=== PATIENT | female | born 1970 | race Caucasian/White ===

== ENCOUNTER 2017-12-08 16:55 | Observation (INO) | payer BC, SELFPAY ==
[2017-12-08] VITALS (10 sets, daily range): BP systolic 145–174; BP diastolic 76–104; PULSE 76–105; RESP 16–21; TEMP 36.7; O2SAT 97–100; BMI 37.2; BMI 36.7
--- NOTE | 2017-12-08 17:17 | RAD_ITS ---
STUDY: X-RAY CHEST REASON FOR EXAM: Female, 47 years old. Chest pain TECHNIQUE: AP port COMPARISON: None. FINDINGS: There is mild elevation right hemidiaphragm.. There is no demonstrated pleural abnormality. Borderline cardiomegaly exaggerated by technical factors.. Normal mediastinum and sonia. Normal visualized pulmonary arteries. Normal visualized aortic arch and descending thoracic aorta. Normal visualized thoracic spine. Normal visualized ribs, clavicles, and shoulders. There is no demonstrated abnormality of the visualized soft tissue structures of the upper abdomen. RAD/Chest 1 View (Portable) IMPRESSION: No acute cardiopulmonary pathology Electronically Signed: Praful Cardenas MD at 18:06 EDT , Service support ,
--- NOTE | 2017-12-08 17:17 | EKG12_ITS ---
Test Reason : Blood Pressure : / mmHG Vent. Rate : 092 BPM Atrial Rate : 092 BPM P-R Int : 134 ms QRS Dur : 074 ms QT Int : 358 ms P-R-T Axes : 044 012 042 degrees QTc Int : 442 ms Normal sinus rhythm Nonspecific ST abnormality Abnormal ECG No previous ECGs available Confirmed by SUSIE BEACH, DOMINIQUE ([id number]), general expeditor JULIETA DAVIS ([id number]) on 12/19/2017 9:30:37 AM Referred By: DULCE MARIA
--- NOTE | 2017-12-08 17:22 | NURSING ---
NO OLD EKG
[2017-12-08 17:37] LABS: Absolute Lymphocyte Count 2.86 X10^3/ul (0.83-4.51); Absolute Neutrophil Count 5.8 X10^3/uL (2.0-7.7); Basophil# 0.05 X10^3/uL; Basophil% 0.5 % (0-1); Eosinophil# 0.09 X10^3/uL; Eosinophils% 0.9 % (0-5); Hematocrit 41.5 % (37-47); Hemoglobin 13.9 g/dl (12.0-15.0); Lymphocyte # 2.86 X10^3/ul (4.0); Lymphocyte % 29.7 % (19-41); Mean Corp Hgb Conc 33.5 g/gl (32-36); Mean Corpuscular Hgb 29.6 pg (27.0-32.0); Mean Corpuscular Volume 88.5 fL (81-99); Mean Platelet Vol. 9.2 fl (6.2-12.0); Monocyte# 0.72 X10^3/uL; Monocyte% 7.5 % (0-10); Neutrophil % 60.2 % (47-70); Platelet Count 289 K/mm3 (150-450); RBC Distribution Width CV 13.8 % (11.6-14.6); Red Blood Count 4.69 M/mm3 (4.2-5.4); White Blood Count 9.6 K/mm3 (4.4-11.0)
[2017-12-08] MEDS: Aspirin 81 MG TAB.CHEW 324 MG PO (17:37)
[2017-12-08 17:50] LABS: POSITIVE COUNT NO; POSITIVE DIFFERENTIAL NO; POSITIVE MORPHOLOGY NO
--- NOTE | 2017-12-08 17:53 | ED.DCSUM_ITS ---
- ER Visit Summary Date of Service: 12/08/17 Chief Complaint: Chest pain History of Present Illness: The patient is a 47 F presenting with intermittent chest pain ?2 weeks. Patient states that this is worsened with exertion. She also complains of shortness of breath with exertion. She states she has had intermittent episodes. She states today the pain lasted longer than previous. She has a history of a previous DVT after knee surgery, no other PE/DVT risk factors. She has a family history of early heart disease. Her blood pressure has been running high but she is not on blood pressure medications. Physical Examination: Vitals are stable. Patient is afebrile. Alert no acute distress. HEENT exam is unremarkable. Neck is supple. Lungs are clear and equal bilaterally. Heart is regular rate and rhythm. Abdomen is soft nontender nondistended. Extremities are unremarkable. Skin is warm and dry. No focal neurologic deficit. Remainder of exam is unremarkable. Emergency Department Course and Treatment: EKG is sinus rate of 92 with no acute ischemic changes. Chest x-ray shows no acute process. CBC, chemistries unremarkable. Troponin is negative. D-dimer 0.34. She was given aspirin on arrival. She remains chest pain-free in the emergency department. Discussed with Dr. Del Toro for admission. Disposition: Admission Impression: Chest pain This note was generated with [employer] dictation software. It may contain incorrect words, spelling, and punctuation that were not noted in review of the chart prior to signing ED Disposition - Plan for ED Patient: Chief Complaint: Chest Pain
[2017-12-08 18:02] LABS: Anion Gap 7 (5-15); BUN 16 mg/dL (7-18); BUN/Creat Ratio 21.7 RATIO (10-20); Calcium,Total 8.4 mg/dL (8.5-10.1); Chloride 105 mmol/L (98-107); Creatinine, Serum 0.74 mg/dL (0.55-1.02); EST Glomerular Filtration Rate 89 mL/min (>60); Est Glom Filt Rate - Afr Amer 107 mL/min (>60); Estimated Creatinine Clearance 92.77 ml/min; Glucose 100 mg/dL (74-106); Potassium 3.7 mmol/L (3.5-5.1); Sodium Level 140 mmol/L (136-145)
--- NOTE | 2017-12-08 18:14 | PCM.HP.STD ---
Problem List (1) Obesity (BMI 30-39.9) Status: Chronic (2) RSD (reflex sympathetic dystrophy) Status: Chronic (3) GERD (gastroesophageal reflux disease) Status: Chronic Qualifiers: Esophagitis presence: esophagitis presence not specified Qualified Code(s): K21.9 - Gastro-esophageal reflux disease without esophagitis (4) Elevated BP without diagnosis of hypertension Status: Acute (5) Chest pain Status: Acute Qualifiers: Chest pain type: unspecified Qualified Code(s): R07.9 - Chest pain, unspecified History of Present Illness Date of Admission: 12/08/17 Chief Complaint: Chest pain The patient is a 47 y/o F w/ PMHx: Obesity, RSD s/p recent L ankle nerve block, GERD, History of remote DVT following knee surgery who presents to the [facility] ED on 12/08/17 with intermittent, substernal central, non-radiating chest pain/tightness with associated dyspnea and lightheadedness, onset with primarily exertion x 2 weeks with recurrent episode on day of ED presentation, noted to be worse than prior in severity and also with 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 In the ED work-up included T 98.1, HR 99, BP 174/100-->145/91, RR 20, 98% on RA, unremarkable CBC, pending D-dimer upon evaluation, unremarkable BMP aside Ca 8.4, trop < 0.02, EKG without acute evidence of ischemia, sinus rhythm, CXR without acute findings. In the ED patient administered ASA. Past Medical History Past Medical History (Chronic Problems): Chronic Problems Obesity (BMI 30-39.9) (Chronic) RSD (reflex sympathetic dystrophy) (Chronic) GERD (gastroesophageal reflux disease) (Chronic) Allergies bee venom protein (honey bee) Allergy (Verified 12/08/17 16:57) Unknown Iodinated Contrast- Oral and IV Dye Allergy (Verified 12/08/17 16:57) Unknown hayfever Allergy (Uncoded 12/08/17 16:57) Unknown Home Medications: Ambulatory Orders Medication Instructions Recorded Epinephrine [Epi Pen] 0.3 mg IM X1 12/08/17 Ranitidine [Zantac] 150 mg PO DAILY 12/08/17 Surgical History: - - Bilateral arthroscopic knee surgery, hysterectomy, cholecystectomy with bile duct repair follow-up, appendectomy. Psychiatric History: No pertinent psych hx RADIO STATION ENGINEER History: No pertinent RADIO STATION ENGINEER history Lives: With Family Smoking Status: Never smoker Alcohol: None Drugs: None - *Family History Maternal History Items: - - Mother with a history of heart disease, heart attack at age 48 with PCI and CABG history. Paternal History Items: - - Father with a history of heart disease with [place] in his 50s. Review of Systems Constitutional: Reports: Fatigue. Denies: Chills, Fever, Weight Change HEENT: Denies: Head Aches, Sinus Congestion, Sinus Drainage Cardiovascular: Reports: Chest Pain, Chest Tightness, Light Headedness. Denies: Edema, Heaviness, Orthopnea, Palpitations, Paroxysmal Noc. Dyspnea, Syncope Respiratory: Reports: Shortness of Breath, Shortness of breath upon exertion. Denies: Cough, Shortness of breath at rest, Sputum production Gastrointestinal: Denies: Abdominal Pain, Nausea, Vomiting Genitourinary: Denies: Dysuria Musculoskeletal: Denies: Joint Pain, Joint Tenderness Skin: Denies: Rash, Wounds Neurological: Denies: Numbness, Tingling, Focal weakness Psychiatric: Denies: Anxiety, Depression, Homicidal Ideations, Suicidal Ideations Hematologic/ Lymphatic: Denies: Easy Bruising, Easy Bleeding VTE Information - Inpt Only VTE Present on Admission: No VTE Mechan Device Prophylaxis: SCD's VTE Pharm Prophylaxis ordered?: Yes Patient Problems: Active and Suspected Problems Elevated BP without diagnosis of hypertension (Acute) Chest pain (Acute) Subjective: Seated upright in the ED bed, NAD, notes no current discomfort. Objective: Physical Examination: General: awake, alert, oriented x 3 and cooperative, seated upright in the ED bed in no apparent distress. Skin: normal color, turgor, no icterus, cyanosis. HEENT: AT/NC, EOMI, PERRLA, MMM, no carotid bruits or JVD noted. Lungs: CTA bilaterally, moderate effort, mild decrease BL bases, no rales, ronchi or wheezing. Heart: Regular rate and rhythm; no gallop, rub audible, no reproducible discomfort with chest palpation. Abdomen: soft, obese, NTTP, ND, normal BS, no HSM. Extremities: no cyanosis, clubbing, or edema. Neurological: patient awake, alert, oriented x 3; cognitive function intact; pupils equally reactive to light and accomodation; cranial nerves II-XII grossly normal, moving all 4 extremities, no focal deficits, strength preserved. Psychiatric: affect appears normal, no acute evidence of depressive or anxiety feelings. - Physical Exam Vital Signs Temp Pulse Resp BP Pulse Ox 98.1 F 86 21 H 145/91 H 97 12/08/17 16:57 12/08/17 17:56 12/08/17 17:56 12/08/17 17:56 12/08/17 17:56 Oxygen Delivery Method Nasal Cannula Weight: 244 lb 11.41 oz Body Mass Index (BMI) 37.2 Laboratory Tests Past 24 Hrs 12/08/17 12/08/17 12/08/17 17:25 17:25 17:25 WBC 9.6 RBC 4.69 Hgb 13.9 Hct 41.5 MCV 88.5 MCH 29.6 MCHC 33.5 RDW 13.8 RDW Differential 44.0 H Plt Count 289 MPV 9.2 Immature Gran % (Auto) 1.200 H Neut % (Auto) 60.2 Lymph % (Auto) 29.7 Mclennan % (Auto) 7.5 Eos % (Auto) 0.9 Baso % (Auto) 0.5 Absolute Neuts (auto) 5.8 Absolute Lymphs (auto) 2.86 Total Counted Not Reportable D-Dimer Quant (PE/DVT) Pending Sodium 140 Potassium 3.7 Chloride 105 Carbon Dioxide 28.0 Anion Gap 7 BUN 16 Creatinine 0.74 Estim Creat Clear Calc 92.77 Est GFR (MDRD) Af Amer 107 Est GFR (MDRD) Non-Af 89 BUN/Creatinine Ratio 21.7 H Glucose 100 Calcium 8.4 L Troponin I < 0.02 Assessment/Plan Active and Suspected Problems Elevated BP without diagnosis of hypertension (Acute) Chest pain (Acute) The patient is a 47 y/o F w/ PMHx: Obesity, RSD s/p recent L ankle nerve block, GERD, History of remote DVT following knee surgery who presents to the [facility] ED on 12/08/17 with intermittent, substernal central, non-radiating chest pain/tightness with associated dyspnea and lightheadedness x 2 weeks, worse on day of ED presentation. (1) Chest Pain: In the ED work-up included T 98.1, HR 99, BP 174/100-->145/91, RR 20, 98% on RA, unremarkable CBC, pending D-dimer upon evaluation, unremarkable BMP aside Ca 8.4, trop < 0.02, EKG without acute evidence of ischemia, sinus rhythm, CXR without acute findings. In the ED patient administered ASA. Will admit to PCU, place on a monitored bed to assure no acute myocardial infarction with serial cardiac enzymes and EKGs. Patient is unable to perform exercise thus will proceed with AM nuclear stress testing. ASA, NG, morphine. FLP in AM. Mag pending. (2) Elevated BP without Dx Hypertension: Notable elevation BP in the ED, improved without treatment, continue to monitor, if remains above goal over the next 24 hours initiate oral therapy, PRN hydralazine. (3) Obesity: Weight loss and lifestyle changes encouraged, nutrition consulted for diet education and teaching. (4) RSD: s/p L ankle injection, maintain on home gabapentin regimen. (5) DVT Prophylaxis: SCDs, lovenox. Code Visit OBSV E&M: 04533 Initial observation care L3
--- NOTE | 2017-12-08 18:16 | NURSING ---
PCU OBS CP WHITE
--- NOTE | 2017-12-08 18:20 | HP.PCM_ITS ---
Problem List (1) Obesity (BMI 30-39.9) Status: Chronic (2) RSD (reflex sympathetic dystrophy) Status: Chronic (3) GERD (gastroesophageal reflux disease) Status: Chronic Qualifiers: Esophagitis presence: esophagitis presence not specified Qualified Code(s) : K21.9 - Gastro-esophageal reflux disease without esophagitis (4) Elevated BP without diagnosis of hypertension Status: Acute (5) Chest pain Status: Acute Qualifiers: Chest pain type: unspecified Qualified Code(s): R07.9 - Chest pain, unspecified History of Present Illness Date of Admission: 12/08/17 Chief Complaint: Chest pain The patient is a 47 y/o F w/ PMHx: Obesity, RSD s/p recent L ankle nerve block, GERD, History of remote DVT following knee surgery who presents to the [facility] ED on 12/08/17 with intermittent, substernal central, non-radiating chest pain/ tightness with associated dyspnea and lightheadedness, onset with primarily exertion x 2 weeks with recurrent episode on day of ED presentation, noted to be worse than prior in severity and also with 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 In the ED work-up included T 98.1, HR 99, BP 174/100-->145/91, RR 20, 98% on RA, unremarkable CBC, pending D-dimer upon evaluation, unremarkable BMP aside Ca 8.4 , trop < 0.02, EKG without acute evidence of ischemia, sinus rhythm, CXR without acute findings. In the ED patient administered ASA. Past Medical History Past Medical History (Chronic Problems): Chronic Problems Obesity (BMI 30-39.9) (Chronic) RSD (reflex sympathetic dystrophy) (Chronic) GERD (gastroesophageal reflux disease) (Chronic) Allergies bee venom protein (honey bee) Allergy (Verified 12/08/17 16:57) Unknown Iodinated Contrast- Oral and IV Dye Allergy (Verified 12/08/17 16:57) Unknown hayfever Allergy (Uncoded 12/08/17 16:57) Unknown Home Medications: Ambulatory Orders Medication Instructions Recorded Epinephrine [Epi Pen] 0.3 mg IM X1 12/08/17 Ranitidine [Zantac] 150 mg PO DAILY 12/08/17 Surgical History: - - Bilateral arthroscopic knee surgery, hysterectomy, cholecystectomy with bile duct repair follow-up, appendectomy. Psychiatric History: No pertinent psych hx CAREER ADVISOR History: No pertinent CAREER ADVISOR history Lives: With Family Smoking Status: Never smoker Alcohol: None Drugs: None - *Family History Maternal History Items: - - Mother with a history of heart disease, heart attack at age 48 with PCI and CABG history. Paternal History Items: - - Father with a history of heart disease with [place] in his 50s. Review of Systems Constitutional: Reports: Fatigue. Denies: Chills, Fever, Weight Change HEENT: Denies: Head Aches, Sinus Congestion, Sinus Drainage Cardiovascular: Reports: Chest Pain, Chest Tightness, Light Headedness. Denies : Edema, Heaviness, Orthopnea, Palpitations, Paroxysmal Noc. Dyspnea, Syncope Respiratory: Reports: Shortness of Breath, Shortness of breath upon exertion. Denies: Cough, Shortness of breath at rest, Sputum production Gastrointestinal: Denies: Abdominal Pain, Nausea, Vomiting Genitourinary: Denies: Dysuria Musculoskeletal: Denies: Joint Pain, Joint Tenderness Skin: Denies: Rash, Wounds Neurological: Denies: Numbness, Tingling, Focal weakness Psychiatric: Denies: Anxiety, Depression, Homicidal Ideations, Suicidal Ideations Hematologic/ Lymphatic: Denies: Easy Bruising, Easy Bleeding VTE Information - Inpt Only VTE Present on Admission: No VTE Mechan Device Prophylaxis: SCD's VTE Pharm Prophylaxis ordered?: Yes Patient Problems: Active and Suspected Problems Elevated BP without diagnosis of hypertension (Acute) Chest pain (Acute) Subjective: Seated upright in the ED bed, NAD, notes no current discomfort. Objective: Physical Examination: General: awake, alert, oriented x 3 and cooperative, seated upright in the ED bed in no apparent distress. Skin: normal color, turgor, no icterus, cyanosis. HEENT: AT/NC, EOMI, PERRLA, MMM, no carotid bruits or JVD noted. Lungs: CTA bilaterally, moderate effort, mild decrease BL bases, no rales, ronchi or wheezing. Heart: Regular rate and rhythm; no gallop, rub audible, no reproducible discomfort with chest palpation. Abdomen: soft, obese, NTTP, ND, normal BS, no HSM. Extremities: no cyanosis, clubbing, or edema. Neurological: patient awake, alert, oriented x 3; cognitive function intact; pupils equally reactive to light and accomodation; cranial nerves II-XII grossly normal, moving all 4 extremities, no focal deficits, strength preserved. Psychiatric: affect appears normal, no acute evidence of depressive or anxiety feelings. - Physical Exam Vital Signs Temp Pulse Resp BP Pulse Ox 98.1 F 86 21 H 145/91 H 97 12/08/17 16:57 12/08/17 17:56 12/08/17 17:56 12/08/17 17:56 12/08/17 17:56 Oxygen Delivery Method Nasal Cannula Weight: 244 lb 11.41 oz Body Mass Index (BMI) 37.2 Laboratory Tests Past 24 Hrs 12/08/17 12/08/17 12/08/17 17:25 17:25 17:25 WBC 9.6 RBC 4.69 Hgb 13.9 Hct 41.5 MCV 88.5 MCH 29.6 MCHC 33.5 RDW 13.8 RDW Differential 44.0 H Plt Count 289 MPV 9.2 Immature Gran % (Auto) 1.200 H Neut % (Auto) 60.2 Lymph % (Auto) 29.7 Crowley % (Auto) 7.5 Eos % (Auto) 0.9 Baso % (Auto) 0.5 Absolute Neuts (auto) 5.8 Absolute Lymphs (auto) 2.86 Total Counted Not Reportable D-Dimer Quant (PE/DVT) Pending Sodium 140 Potassium 3.7 Chloride 105 Carbon Dioxide 28.0 Anion Gap 7 BUN 16 Creatinine 0.74 Estim Creat Clear Calc 92.77 Est GFR (MDRD) Af Amer 107 Est GFR (MDRD) Non-Af 89 BUN/Creatinine Ratio 21.7 H Glucose 100 Calcium 8.4 L Troponin I < 0.02 Assessment/Plan Active and Suspected Problems Elevated BP without diagnosis of hypertension (Acute) Chest pain (Acute) The patient is a 47 y/o F w/ PMHx: Obesity, RSD s/p recent L ankle nerve block, GERD, History of remote DVT following knee surgery who presents to the [facility] ED on 12/08/17 with intermittent, substernal central, non-radiating chest pain/ tightness with associated dyspnea and lightheadedness x 2 weeks, worse on day of ED presentation. (1) Chest Pain: In the ED work-up included T 98.1, HR 99, BP 174/100-->145/91, RR 20, 98% on RA, unremarkable CBC, pending D-dimer upon evaluation, unremarkable BMP aside Ca 8.4, trop < 0.02, EKG without acute evidence of ischemia, sinus rhythm, CXR without acute findings. In the ED patient administered ASA. Will admit to PCU, place on a monitored bed to assure no acute myocardial infarction with serial cardiac enzymes and EKGs. Patient is unable to perform exercise thus will proceed with AM nuclear stress testing. ASA , NG, morphine. FLP in AM. Mag pending. (2) Elevated BP without Dx Hypertension: Notable elevation BP in the ED, improved without treatment, continue to monitor, if remains above goal over the next 24 hours initiate oral therapy, PRN hydralazine. (3) Obesity: Weight loss and lifestyle changes encouraged, nutrition consulted for diet education and teaching. (4) RSD: s/p L ankle injection, maintain on home gabapentin regimen. (5) DVT Prophylaxis: SCDs, lovenox. Code Visit OBSV E&M: 42179 Initial observation care L3
[2017-12-08 18:42] LABS: D-Dimer Quantitative (DVT/PE) 0.34 FEU/ug/m (0.27-0.49)
[2017-12-08] MEDS: Famotidine 20 MG Tablet PO (21:26)
[2017-12-08] MEDS: 0.9% NaCl Peripheral Flush Adult/Peds IV (21:27)
[2017-12-08] MEDS: hydrALAZINE 20 MG/ML Vial 10 MG IV (21:27)
[2017-12-08] MEDS: 0.9% Normal Saline 1,000 ML 125 ML IV (23:51)
[2017-12-09] VITALS (7 sets, daily range): BP systolic 137–145; BP diastolic 76–90; PULSE 68–78; RESP 16–18; TEMP 36.5–36.8; O2SAT 97–98
[2017-12-09] MEDS: Aspirin E.C. 81 MG Tablet PO (05:14)
--- NOTE | 2017-12-09 05:55 | EKG12_ITS ---
Test Reason : AM EKG Blood Pressure : / mmHG Vent. Rate : 071 BPM Atrial Rate : 071 BPM P-R Int : 140 ms QRS Dur : 076 ms QT Int : 418 ms P-R-T Axes : 017 011 038 degrees QTc Int : 454 ms Normal sinus rhythm Normal ECG When compared with ECG of 08-DEC-2017 16:56, MANUAL COMPARISON REQUIRED, DATA IS UNCONFIRMED Confirmed by SUSIE BEACH, DOMINIQUE ([id number]), editorial project manager JULIETA DAVIS ([id number]) on 12/12/2017 1:38:29 PM Referred By: NEDRA Confirmed By:DOMINIQUE RICHARDS MD
[2017-12-09] MEDS: Famotidine 20 MG Tablet PO (10:28)
[2017-12-09 10:48] LABS: Hematocrit 41.7 % (37-47); Hemoglobin 13.3 g/dl (12.0-15.0); Mean Corp Hgb Conc 31.9 g/gl (32-36); Mean Corpuscular Hgb 28.5 pg (27.0-32.0); Mean Corpuscular Volume 89.3 fL (81-99); Platelet Count 257 K/mm3 (150-450); RBC Distribution Width SD 45.3 fl (35.1-43.9); Red Blood Count 4.67 M/mm3 (4.2-5.4); White Blood Count 7.4 K/mm3 (4.4-11.0)
[2017-12-09 10:50] LABS: Scan Indicated on CBC? Y/N NO
[2017-12-09 10:57] LABS: Prothrombin Time (Protime)PT. 12.8 SECONDS (11.7-14.9)
[2017-12-09 10:58] LABS: Partial Thromboplast Time 30.4 Seconds (24.1-36.2)
--- NOTE | 2017-12-09 11:01 | STRESSREP ---
Stress Test Report Pharmacologic myocardial perfusion stress test. 47-year-old lady with a history of chest pain. Stress protocol: Resting EKG demonstrates sinus rhythm with a rate of 65 bpm normal intervals and noted resting blood pressure is 138/92 mmHg. 0.4 mg of regadenoson was infused per usual protocol followed by rapid intravenous saline flush injection continuous EKG monitoring was performed. The maximum heart rate attained was 90 bpm which was from the percent of maximum predicted heart rate. Resting blood pressure is 138/92 final blood pressure was the same. Myocardial perfusion protocol. 13.4 mCi of technetium 99m sestamibi was injected at rest. 0.4 mg of regadenoson was infused per usual protocol. At peak infusion 42.0 mCi of technetium 99m sestamibi was injected stress images were obtained stress and rest images were reconstructed and compared in the short axis vertical long and horizontal long axis. Gated images were also obtained. Perfusion SPECT analysis: Review of the stress images demonstrate normal uptake of tracer noted in all areas of the myocardium. The resting images similarly demonstrate normal uptake of tracer noted in all areas of the myocardium. No areas of reversibility are noted suggest ischemia no previous infarct is noted. Gated SPECT analysis: The gated ejection fraction is 66%. Conclusion: Normal pharmacologic myocardial perfusion stress test. Preserved ejection fraction.
[2017-12-09 11:09] LABS: Anion Gap 8 (5-15); BUN 11 mg/dL (7-18); BUN/Creat Ratio 16.1 RATIO (10-20); Calcium,Total 8.1 mg/dL (8.5-10.1); Chloride 108 mmol/L (98-107); Cholesterol 193 mg/dL (200); Creatinine, Serum 0.68 mg/dL (0.55-1.02); EST Glomerular Filtration Rate 97 mL/min (>60); Est Glom Filt Rate - Afr Amer 117 mL/min (>60); Estimated Creatinine Clearance 100.95 ml/min; Glucose 92 mg/dL (74-106); High Density Lipoprotein 52 mg/dL; Potassium 3.9 mmol/L (3.5-5.1); Sodium Level 139 mmol/L (136-145); Triglycerides 128 mg/dL; Very Low Density Lipoprotein 26 mg/dL (5-40)
--- NOTE | 2017-12-09 11:13 | PCM.DC ---
- Discharge Diagnoses Current Active Problems: Current Active and Chronic Problems Obesity (BMI 30-39.9) (Chronic) RSD (reflex sympathetic dystrophy) (Chronic) GERD (gastroesophageal reflux disease) (Chronic) Elevated BP without diagnosis of hypertension (Acute) Chest pain (Acute) You will use the following diet at home:: No restrictions Your food should be the consistency of: Regular Your liquids should be the consistency of: Regular/Thin Discharge Activity: Return to Normal Activity Weight Bearing Status: Full weight bearing Allergies/Adverse Reactions: Allergies bee venom protein (honey bee) Allergy (Verified 12/08/17 16:57) Unknown Iodinated Contrast- Oral and IV Dye Allergy (Verified 12/08/17 16:57) Unknown hayfever Allergy (Uncoded 12/08/17 16:57) Unknown Medications to take at Discharge Epinephrine [Epi Pen] 0.3 mg IM X1 12/08/17 Ranitidine [Zantac] 150 mg PO DAILY 12/08/17 Gabapentin [Neurontin] 100 mg PO TIDCM capsule 12/09/17 Primary Care Physician: Delmar Gage MD [Primary Care Provider] - Please follow up with your Primary Care Physician in: in 2-3 weeks
--- NOTE | 2017-12-09 11:14 | PCM.DC.SUM ---
Discharge Date and Diagnosis - Problem List Patient Problems: Active and Suspected Problems Elevated BP without diagnosis of hypertension (Acute) Chest pain (Acute) Date of Admission: 12/08/17 Date of Discharge: 12/09/17 - Primary Discharge Diagnosis Active and Suspected Problems #1 musculoskeletal chest pain #2 reflex sympathetic dystrophy - Secondary Discharge Diagnosis Chronic Problems Obesity (BMI 30-39.9) (Chronic) RSD (reflex sympathetic dystrophy) (Chronic) GERD (gastroesophageal reflux disease) (Chronic) Hospital Course and Treatment Imaging Results: 12/09/17 05:55 Nuclear Stress Test - Chemical [NM] AM (NON MEDS) Operations: None Procedures: Nuclear stress test Summary of Care Provided: The patient is a 47 year old F seen in the emergency room at [facility] with chief complaint of substernal chest pressure. Workup in the emergency room including an EKG, chest x-ray, cardiac enzymes, and labs were unremarkable. Patient was placed in observation status on PCU, serial isoenzymes were obtained and these were unremarkable, patient underwent a nuclear exercise stress test on 12/09/17 which was negative for reversible ischemia. Patient was seen and examined on 12/09/17 and was discharged home in stable condition. She was instructed to follow-up with her family practitioner regarding elevated blood pressure which she had while she was in the hospital. Discharge Activity: Return to Normal Activity Weight Bearing Status: Full weight bearing Home Medications: Medications to take at Discharge Epinephrine [Epi Pen] 0.3 mg IM X1 12/08/17 Ranitidine [Zantac] 150 mg PO DAILY 12/08/17 Gabapentin [Neurontin] 100 mg PO TIDCM capsule 12/09/17 Primary Care Physician: Delmar Gage MD [Primary Care Provider] - Please follow up with your Primary Care Physician in: in 2-3 weeks-get your blood pressure rechecked Disposition: Home Minutes spent on discharge:: 25 Patient Condition:: Stable Medical Necessity - Tobacco Use Smoking Status: Never smoker Meaningful Use Info Meaningful Use Diagnoses (Choose all that apply): None applicable Code Visit OBSV E&M: 20482 Observation care discharge
== END 2017-12-09 11:13 | disposition home or self-care (01) ==
LOC: ED 17:49 → PCU 18:33
PROVIDERS: Admitting Provider Family Medicine; Emergency Provider Emergency Medicine; Family Provider Family Medicine; PCP Family Medicine; Visit Provider Internal Medicine
DX: R07.89 Other chest pain (principal); R06.02 Shortness of breath; E66.9 Obesity, unspecified; K21.9 Gastro-esophageal reflux disease without esophagitis; G90.50 Complex regional pain syndrome I, unspecified; Z86.718 Personal history of other venous thrombosis and embolism; Z82.49 Family history of ischemic heart disease and other diseases of the circulatory system; Z68.37 Body mass index [BMI] 37.0-37.9, adult; Z71.3 Dietary counseling and surveillance; Z79.899 Other long term (current) drug therapy; I10 Essential (primary) hypertension
CPT/HCPCS: 36415; 71045; 78452; 80048; 80061; 83735; 84484; 85025; 85027; 85379; 85610; 85730; 93005; 93017; 96361; 96374; 99218; 99285; A9500; J7030; A4216; G0378; J2785

== ENCOUNTER → 2018-01-03 09:32 | Outpatient (CLI) | payer BC, SELFPAY ==
--- NOTE | 2018-01-03 09:59 | EKG12_ITS ---
Test Reason : PREOP Blood Pressure : / mmHG Vent. Rate : 079 BPM Atrial Rate : 079 BPM P-R Int : 148 ms QRS Dur : 072 ms QT Int : 386 ms P-R-T Axes : 000 017 009 degrees QTc Int : 442 ms Normal sinus rhythm Normal ECG Confirmed by SUSIE BEACH, DOMINIQUE ([id number]), scientific publications editor JULIETA GILL ([id number]) on 01/05/2018 12:59:44 PM Referred By: Sarath Gill Confirmed By:DOMINIQUE RICHARDS MD
--- NOTE | 2018-01-03 10:10 | RAD_ITS ---
STUDY: X-RAY CHEST REASON FOR EXAM: Female, 47 years old. Preop TECHNIQUE: PA and lateral views of the chest. COMPARISON: Prior study of 12/08/2017 FINDINGS: The lungs are clear and expanded. There is no demonstrated pleural abnormality. Normal size heart. Normal mediastinum and sonia. Normal visualized pulmonary arteries. There are calcified plaques of the aortic arch. Normal visualized thoracic spine. Normal visualized ribs, clavicles, and shoulders. There is no demonstrated abnormality of the visualized soft tissue structures of the upper abdomen. RAD/Chest PA and Lateral IMPRESSION: Calcified plaques of the aortic arch. No acute cardiopulmonary disease process is seen. Electronically Signed: Esdras Peter MD at 17:28 EDT , Service support ,
[2018-01-03 10:36] LABS: Hemoglobin 12.9 g/dl (12.0-15.0); Mean Corp Hgb Conc 33.1 g/gl (32-36); Mean Corpuscular Hgb 29.5 pg (27.0-32.0); Mean Corpuscular Volume 89.2 fL (81-99); Mean Platelet Vol. 9.6 fl (6.2-12.0); Platelet Count 273 K/mm3 (150-450); RBC Distribution Width CV 13.2 % (11.6-14.6); Red Blood Count 4.37 M/mm3 (4.2-5.4); White Blood Count 6.1 K/mm3 (4.4-11.0)
[2018-01-03 10:37] LABS: Scan Indicated on CBC? Y/N NO
[2018-01-03 11:00] LABS: Anion Gap 5 (5-15); BUN 12 mg/dL (7-18); BUN/Creat Ratio 15.5 RATIO (10-20); Calcium,Total 8.9 mg/dL (8.5-10.1); Chloride 105 mmol/L (98-107); Creatinine, Serum 0.77 mg/dL (0.55-1.02); EST Glomerular Filtration Rate 84 mL/min (>60); Est Glom Filt Rate - Afr Amer 102 mL/min (>60); Glucose 94 mg/dL (74-106); Potassium 4.2 mmol/L (3.5-5.1); Sodium Level 138 mmol/L (136-145)
== END ==
PROVIDERS: Family Provider Family Medicine; PCP Family Medicine; Visit Provider Orthopaedic Surgery
DX: Z01.812 Encounter for preprocedural laboratory examination (principal); I10 Essential (primary) hypertension; Z01.810 Encounter for preprocedural cardiovascular examination; Z01.811 Encounter for preprocedural respiratory examination
CPT/HCPCS: 36415; 71046; 80048; 85027; 93005

== ENCOUNTER 2022-06-24 14:38 | Emergency (ER) | payer BC, SELFPAY ==
[2022-06-24 14:40] VITALS: BP 194/122; PULSE 111; RESP 22; TEMP 37.3; O2SAT 98; BMI 38.8
[2022-06-24 14:47] VITALS: BP 173/105; PULSE 107
--- NOTE | 2022-06-24 14:53 | EDS_ITS ---
HPI History of Present Illness Chief Complaint: Chest Pain Informant: patient Onset/Context/Timing Onset: Month(s) (1) Activity at onset: sudden Timing: Intermittent and Lasts (20 to 40 minutes) Quality: Positive for Burning Location: Substernal Current Severity: Gone Worsened By: Nothing Relieved By: Nothing Associated Symptoms: Positive for Diaphoresis, Lightheadedness, Acid Reflux and Palpitations; Negative for Nausea, Vomiting, Dyspnea, Cough or Fever Narrative Narrative: Patient presents with chest pain that has been intermittent over the last month. Patient states that over the last few days it has been lasting longer. Patient states that last approximately 20 to 40 minutes. Patient describes the pain as burning. Patient states the pain is over the substernal area. Patient admits to some diaphoresis with the pain. Patient also states she feels like her heart is racing. Patient admits to some lightheadedness and acid reflux. Patient denies any cough or fevers. Patient denies any nausea or vomiting. Patient denies any shortness of breath. CVD Risk Factors: Positive for Family History 1' </=55; Negative for Hypertension, Diabetes, Hypercholesterolemia or Smoking PE Risk Factors: Positive for Prior DVT or PE; Negative for Recent Travel/Surgery, Recent Immobilization, Cancer or OCP + Smoking + >/=35 [facility] Medical History Chest pain RSD (reflex sympathetic dystrophy) Spinal cord stimulator status Home Medications epinephrine 0.3 mg/0.3 mL injection, auto-injector 0.3 mg IM X1 PRN allergic rx 12/08/17 [History Last Taken Unknown] valsartan 160 mg tablet 160 mg PO DAILY #30 tabs 12/09/17 [Rx Last Taken Unknown] armodafinil 150 mg tablet 150 mg PO DAILY 06/24/22 [History Last Taken Unknown] pregabalin 75 mg capsule 75 mg PO QHS 06/24/22 [History Last Taken Unknown] Allergy/AdvReac Type Severity Reaction Status Date / Time bee venom protein (honey bee) Allergy Unknown Verified 06/24/22 14:40 Environmental Allergies: Allergy NEEDS Verified 06/24/22 15:03 Uncoded FOLLOW-UP [hay fever] Iodinated Contrast Media Allergy Unknown Verified 06/24/22 14:40 [Iodinated Contrast- Oral and IV Dye] Family History Mother CAD (coronary artery disease) Father CAD (coronary artery disease) Social History Smoking Status: Never smoker ROS ROS ED Constitutional Constitutional ED: Reports sweats; Denies chills or fever(s) Eyes Eyes: Denies blurry vision or change in vision ENT ENT ED: Denies rhinorrhea or sore throat Cardiovascular Cardiovascular: Reports chest pain and palpitations Respiratory/Chest Respiratory/Chest: Denies cough or dyspnea Gastrointestinal Gastrointestinal: Denies abdominal pain, nausea or vomiting Genitourinary Genitourinary ED: Denies dysuria or hematuria Musculoskeletal Musculoskeletal: Reports back pain and neck pain Integumentary Denies abscess or rash Neurologic Neurologic: Reports headache(s); Denies weakness Allergic/Immunologic Allergic/Immunologic ED: Denies mouth swelling or urticaria EXAM Physical Exam Const Vital Signs: 06/24/22 14:40 06/24/22 14:46 06/24/22 14:47 Temperature 99.1 F Temperature Source Oral Pulse Rate 111 H 107 H Respiratory Rate 22 H Respiratory Effort Normal Non-Labored Respiratory Pattern Normal Blood Pressure 194/122 H 173/105 H Blood Pressure Mean 146 127 Pulse Ox 98 Oxygen Delivery Method Room Air 06/24/22 15:05 Temperature Temperature Source Pulse Rate Respiratory Rate Respiratory Effort Respiratory Pattern Blood Pressure Blood Pressure Mean Pulse Ox 97 Oxygen Delivery Method Room Air Positive well nourished, well developed and obese General Appearance ED: well developed Nutritional Appearance: obese HEENT normocephalic and atraumatic Eyes PERRL and EOMs intact bilaterally Neck supple and no JVD Chest Wall palpation of chest normal Resp normal respiratory effort and clear to auscultation bilaterally Effort and Inspection: Negative for respiratory distress Cardio regular rhythm and no murmurs Rate: tachycardic GI normal to inspection, nondistended, normoactive bowel sounds, soft to palpation, non-tender and non-distended Extremity normal to inspection General Extremety ED: Negative for edema or tenderness General Extremity: Negative for edema Neuro oriented x3, CN's II-XII intact bilaterally and no sensory deficits noted Sensorium / Orientation: awake and alert Motor Exam: strength 5/5 throughout Psych mental status grossly normal Heart Score History: Slightly/Non-Suspicious ECG: Nonspecific Repolarization Age: >45 - <65 years Risk Factors: 1 or 2 Risk Factors Troponin: </= Normal Limit Score: 3 MDM MDM MDM Narrative Medical decision making narrative: Patient was given aspirin here. EKG was obtained. On my interpretation, it showed a sinus tachycardia with a rate of 113. DC interval, QRS interval, and QTc intervals were all normal. Lugoff was normal. There are no acute ST or T wave changes. CBC was within normal limits. Basic metabolic profile was within normal limits. D-dimer was normal. High-sensitivity troponin was normal. PA and lateral chest x-ray was obtained. There are 2 views. On my interpretation, lung hollis are clear. There is normal cardiac silhouette. Bony thorax is normal. There is no acute process noted. Radiologist also interpreted the x- ray and agrees. Patient is feeling better on reevaluation. Patient was advised of her findings. Patient has a HEART score of 3. Patient was advised that this is low risk for acute cardiac event. Patient was instructed to follow-up with her primary care physician in 5 to 7 days for reevaluation. Patient understood and was agreeable with the plan. All questions were answered. Lab Data Attestation: I reviewed the patient's lab results. Labs: Laboratory Results - last 24 hr 06/24/22 06/24/22 06/24/22 14:45 14:45 14:45 WBC 7.9 RBC 5.02 Hgb 14.6 Hct 44.1 MCV 87.8 MCH 29.1 MCHC 33.1 RDW Std Deviation 41.1 RDW Coeff of Char 12.7 Plt Count 262 MPV 9.3 Immature Gran % (Auto) 0.400 Neut % (Auto) 48.5 Lymph % (Auto) 41.7 H Grand % (Auto) 6.9 Eos % (Auto) 1.9 Baso % (Auto) 0.6 Absolute Neuts (auto) 3.8 Absolute Lymphs (auto) 3.28 Nucleated RBC % 0 D-Dimer Quant (PE/DVT) 0.31 Sodium 140 Potassium 4.0 Chloride 106 Carbon Dioxide 26.0 Anion Gap 8 BUN 13 Creatinine 0.86 Estim Creat Clear Calc 75.44 Est GFR (MDRD) Af Amer 88 Est GFR (MDRD) Non-Af 73 BUN/Creatinine Ratio 15.1 Glucose 112 H Calcium 9.5 Troponin I High Sens 6 Radiography Chest X-Ray - ED: 2 View, Read by ED Physician, Read by Radiologist, Normal and No Acute Disease Diagnostic Testing: Clinical Impression(s) from Imaging Studies Chest X-Ray 06/24/22 15:10 IMPRESSION: No acute abnormality is present. Electronically Signed: Manpreet Maldonado MD at 15:32 EDT , EKG Initial EKG: Attestation: I personally reviewed and interpreted this EKG as follows: Interpretation: No Acute Injury Pattern and Sinus Tachycardia (113) Prior EKG tracings: available for review Prior: Unchanged (01/03/2018) Discharge Plan Triage Chief Complaint: Chest Pain ED Provider: Ozzie James Dx/Rx/DC Orders Clinical Impression: Chest pain, Obesity (BMI 30-39.9) Instructions: ED Chest Pain, Uncertain Cause Prescriptions: No Action epinephrine 0.3 MG syringe 0.3 mg IM X1 PRN (Reason: allergic rx) valsartan 160 MG tablet 160 mg PO DAILY Qty: 30 0RF pregabalin 75 mg Capsule 75 mg PO QHS armodafinil 150 mg tablet 150 mg PO DAILY Primary Care Provider: Delmar Gage Referrals: Delmar Gage MD [Primary Care Provider] - 5-7 Days Disposition Disposition: Home, Self Care
--- NOTE | 2022-06-24 14:59 | EKG12_ITS ---
Test Reason : CP Blood Pressure : / mmHG Vent. Rate : 113 BPM Atrial Rate : 113 BPM P-R Int : 140 ms QRS Dur : 076 ms QT Int : 332 ms P-R-T Axes : 044 020 023 degrees QTc Int : 455 ms Sinus tachycardia Cannot rule out Inferior infarct , age undetermined Abnormal ECG Confirmed by MARTINA BEACH, JO ANN ([id number]), writer editor ROLF CHOW ([id number]) on 06/27/2022 9:55:14 A M Referred By: JOSE/KAYLIE Confirmed By:SEB MACK MD
[2022-06-24 15:05] VITALS: O2SAT 97
[2022-06-24] MEDS: 0.9% Normal Saline 1,000 ML 1000 ML IV (15:09)
[2022-06-24] MEDS: Aspirin 81 MG TAB.CHEW 324 MG PO (15:09)
[2022-06-24 15:10] LABS: Absolute Lymphocyte Count 3.28 X10^3/uL (0.83-4.51); Absolute Neutrophil Count 3.8 X10^3/uL (2.0-7.7); Basophil# 0.05 X10^3/uL; Basophil% 0.6 % (0-1); Eosinophil# 0.15 X10^3/uL; Eosinophils% 1.9 % (0-5); Hematocrit 44.1 % (37-47); Hemoglobin 14.6 g/dL (12.0-15.0); Lymphocyte # 3.28 X10^3/ul (0.83-4.51); Lymphocyte % 41.7 % (19-41); Mean Corp Hgb Conc 33.1 g/dL (32-36); Mean Corpuscular Hgb 29.1 pg (27.0-32.0); Mean Corpuscular Volume 87.8 fL (81-99); Mean Platelet Vol. 9.3 fl (6.2-12.0); Monocyte# 0.54 X10^3/uL; Monocyte% 6.9 % (0-10); NRBC Flagged by Analyzer 0 % (0-5); Neutrophil # 3.82 X10^3/uL (2.7-7.7); Neutrophil % 48.5 % (47-70); Platelet Count 262 K/mm3 (150-450); RBC Distribution Width CV 12.7 % (11.6-14.6); RBC Distribution Width SD 41.1 fl (35.1-43.9); Red Blood Count 5.02 M/mm3 (4.2-5.4); White Blood Count 7.9 K/mm3 (4.4-11.0)
--- NOTE | 2022-06-24 15:10 | RAD_ITS ---
STUDY: X-RAY CHEST REASON FOR EXAM: Female, 52 years old. Chest pain TECHNIQUE: PA and lateral views of the chest. COMPARISON: Comparison is made with prior study dated 01/03/2018. FINDINGS: EKG electrodes are seen. The lungs are clear and expanded. There is no demonstrated pleural abnormality. Normal size heart. Normal mediastinum and sonia. Normal visualized pulmonary arteries. There is atherosclerotic tortuosity of the aortic arch and descending thoracic aorta. There are diffuse degenerative changes of the visualized thoracic spine. Normal visualized ribs, clavicles, and shoulders. Electrodes from a pain stimulator device is seen with the tip at the T10-T11 level. There is no demonstrated abnormality of the visualized soft tissue structures of the upper abdomen. RAD/Chest PA and Lateral IMPRESSION: No acute abnormality is present. Electronically Signed: Manpreet Maldonado MD at 15:32 EDT ,
[2022-06-24 15:20] LABS: D-Dimer Quantitative (DVT/PE) 0.31 FEU/ug/m (0.27-0.49)
[2022-06-24 15:27] LABS: Anion Gap 8 (5-15); BUN 13 mg/dL (7-18); BUN/Creat Ratio 15.1 RATIO (10-20); Calcium,Total 9.5 mg/dL (8.5-10.1); Chloride 106 mmol/L (98-107); Creatinine, Serum 0.86 mg/dL (0.55-1.02); EST Glomerular Filtration Rate 73 mL/min (>60); Est Glom Filt Rate - Afr Amer 88 mL/min (>60); Estimated Creatinine Clearance 75.44 ml/min; Glucose 112 mg/dL (74-106); Sodium Level 140 mmol/L (136-145); Troponin-I HS (w/2H Reflex) 6 pg/mL (3.0-54.0)
[2022-06-24 16:29] VITALS: BP 146/95; PULSE 71; RESP 18; O2SAT 97
[2022-06-24 17:07] LABS: Reflex Troponin-HS? (from REC) Y
== END 2022-06-24 16:29 | disposition home or self-care (01) ==
PROVIDERS: Emergency Provider Emergency Medicine; PCP Family Medicine; Visit Provider Emergency Medicine
DX: R07.9 Chest pain, unspecified (principal); E66.9 Obesity, unspecified; Z68.38 Body mass index [BMI] 38.0-38.9, adult; Z82.49 Family history of ischemic heart disease and other diseases of the circulatory system
CPT/HCPCS: 71046; 80048; 84484; 85025; 85379; 93005; 96360; 99285; J7030; A4216

== ENCOUNTER → 2024-11-11 | Outpatient (CLI) | payer BC, SELFPAY ==
--- NOTE | 2024-11-11 09:43 | MRI_ITS ---
PROCEDURE: UPPER EXT JOINT ONLY(ROUTINE) REASON FOR EXAM: Left shoulder pain and decreased range of motion for 3 years. No known injury. TECHNIQUE: MRI of the left shoulder without contrast. COMPARISON: None provided. FINDINGS Moderate degenerative changes are seen at the left acromioclavicular joint, with associated marked joint space narrowing. Edema of the distal clavicle is seen, suggesting inflammatory component; this may be a source of pain in some patients. No other area of acute osseous signal changes are seen. The left glenohumeral joint is unremarkable in appearance. No joint effusion is evident. Moderate supraspinatus tendinosis is seen. Mild infraspinatus tendinosis is noted. No glenoid labral tear is seen. The long head of the biceps tendon appears intact. MRI/Upper Ext Joint Only(Routine) IMPRESSION: 1. Moderate degenerative changes of the left acromioclavicular joint, also with associated edema in the distal clavicle. This edema suggests an inflammatory component, which may be a source of pain in some patients. 2. Moderate supraspinatus tendinosis. 3. Mild infraspinatus tendinosis Reading Location: [id number]
== END | disposition home or self-care (01) ==
PROVIDERS: PCP Family Medicine
DX: M25.512 Pain in left shoulder (principal)
CPT/HCPCS: 73221